=== PATIENT | male | born 1960 | race Two or more races ===

== ENCOUNTER 2017-04-24 07:40 | Inpatient (IN) | payer OTHER ==
[2017-04-24 09:49] VITALS: BMI 28.3
[2017-04-24] MEDS ORDERED: PEG 3350/NA SULF BICARB CL/KCL 4000 ML SOLN.RECON PO ONE (11:30)
[2017-04-24] MEDS ORDERED: ERTAPENEM SODIUM 1 GM/50 ML PRE-DOCKED IVPB ONE (11:30)
[2017-04-24] MEDS ORDERED: ERTAPENEM SODIUM 1 GM/50 ML PRE-DOCKED IVPB SCH (11:30)
[2017-04-24] MEDS: LOSARTAN POTASSIUM 50 MG TABLET (FP) PO SCH (21:23)
[2017-04-24] MEDS: METOPROLOL SUCCINATE 25 MG TAB.SR.24H (FP) PO SCH (21:23)
[2017-04-25 08:06] LABS: BASOPHIL 0.2 % (0-2.0); EOSINOPHIL 3.4 % (0-4.5); MCH 29.8 pg (25.7-33.7); MCHC 33.1 g/dl (32.0-35.9); MEAN CELL VOLUME 90.2 fl (80-96); MEAN PLT VOLUME 10.4 fl (7.5-11.1); NEUTROPHILS 59.6 % (42.8-82.8); PLATELET COUNT 196 K/MM3 (134-434); RDW 12.6 % (11.9-15.9); WHITE BLOOD COUNT 5.3 K/mm3 (4.0-10.8)
[2017-04-25 08:14] LABS: ALK PHOS 48 U/L (32-92); ANION GAP 5 (8-16); CO2 29 mmol/L (22-28); CREATININE 0.7 mg/dl (0.6-1.3); GLUCOSE,RANDOM 148 mg/dl (74-106); MAGNESIUM 1.8 mg/dL (1.8-2.4); PHOSPHOROUS 2.6 mg/dl (2.5-4.6); SGOT/AST 40 U/L (10-42); SGPT/ALT 74 U/L (10-40); TOT PROT 6.2 g/dl (6.4-8.3)
[2017-04-25 08:17] LABS: INR 1.12 (0.82-1.09); PROTHROMBIN TIME (PATIENT) 12.5 SEC (10.2-13.0)
[2017-04-25] MEDS ORDERED: oxyCODONE HCL 5 MG TABLET PO PRN ×2 (09:06)
[2017-04-25] MEDS ORDERED: ONDANSETRON 4 MG/2 ML VIAL IVPUSH PRN (09:06)
[2017-04-25] MEDS ORDERED: HYDROmorphone HCL CARPU-JECT 1 MG/1 ML DISP.SYRIN IVPUSH PRN (09:06)
[2017-04-25] MEDS ORDERED: DESFLURANE GAS 240 ML BOTTLE IH ONE (10:06)
[2017-04-25] MEDS: LOSARTAN POTASSIUM 50 MG TABLET (FP) PO SCH (10:14)
[2017-04-25] MEDS: METOPROLOL SUCCINATE 25 MG TAB.SR.24H (FP) PO SCH (10:14)
[2017-04-25] MEDS: LACTATED RINGERS SOLUTION 1,000 ML IV SCH ×3 (10:14→11:41)
[2017-04-25] MEDS: INSULIN SLIDING SCALE (NOVOLOG) 1 VIAL SQ SCH ×4 (10:27→21:42)
[2017-04-25] MEDS ORDERED: MIDAZOLAM HCL 2 MG/2 ML SINGLE DOSE VIAL ONE (10:29)
[2017-04-25] MEDS ORDERED: DEXAMETHASONE SOD PHOSPHATE/PF 10 MG/ML SDV ONE (10:29)
[2017-04-25] MEDS ORDERED: BUPIVACAINE HCL/PF 2.5 MG/ML - 30 ML VIAL IJ ONE (10:29)
[2017-04-25] MEDS ORDERED: ERTAPENEM SODIUM 1 GM/50 ML PRE-DOCKED IVPB ONE ×2 (11:00→22:00)
[2017-04-25] MEDS ORDERED: morphine CARPU-JECT 4 MG/1 ML DISP.SYRIN IVPB PRN (13:47)
[2017-04-25] MEDS ORDERED: morphine CARPU-JECT 10 MG/1 ML DISP.SYRIN IVPB PRN (13:48)
[2017-04-25] MEDS ORDERED: ONDANSETRON 4 MG/2 ML VIAL IVPB PRN (13:48)
--- NOTE | 2017-04-25 14:04 | OP ---
DATE OF OPERATION: 04/25/2017 PREOPERATIVE DIAGNOSIS: Cecal tumor. POSTOPERATIVE DIAGNOSIS: Cecal tumor, chronically incarcerated recurrent incisional hernia. PROCEDURE: Laparoscopic extended right hemicolectomy, omental patch, peritoneal lavage. SURGEON: Rex Kincaid MD GUSSET MAKER: Chester Mendosa DO ANESTHESIA: Angela Victoria MD (general). ESTIMATED BLOOD LOSS: Minimal. SPECIMENS: Right colon. MEDICAL COMORBIDITIES: Obesity, coronary artery disease, hypertension, diabetes. INDICATION FOR PROCEDURE: This is a 57-year-old gentleman who underwent a biopsy of a tumor noted at the time of colonoscopy at the appendiceal orifice. The pathology demonstrated tubular adenoma; however, this was not amenable to an endoscopic resection. This tumor is a wide-based tumor at the appendiceal orifice. We have discussed the pros and cons of an extended cecectomy versus a right colectomy, and the patient understands the risks and benefits of each operation and has opted to proceed with a right colectomy in case this is cancer, not coming back for a second operation. He also has a history of constipation, and he asked that we remove a little bit extra colon in hopes of improving his constipation, which most likely will not. He understands but still wants that performed. DESCRIPTION OF PROCEDURE: Patient identified and appropriately positioned on the operating room table. After placement of general anesthesia and prepped and draped in the usual sterile fashion using ChloraPrep, a supraumbilical incision was made, deepened through subcutaneous tissue. The fascia was divided sharply, the peritoneum incised under direct vision. A Veress needle followed by a structural needle was placed. The remaining 4 ports were placed under direct vision as well. Upon placement of the camera, there was omentum plastered to the previous incisional hernia repair. The omentum was taken down as needed. Once this was done, the patient was noted to have a recurrent incisional hernia. The colon identified in the right gutter, the cecum identified and lifted to the anterior abdominal wall. The ileocolic pedicle identified, and this was subsequently divided with the LigaSure device. Four welds placed prior to complete division. Next, the loose areolar tissue was then swept superiorly and inferiorly and the duodenum identified going north. The tissue anterior to the duodenum was then swept, and a window was made at the right upper quadrant at the level of the hepatic flexure. The colon now rolled medially and inferiorly, and the hepatic ligament was subsequently taken down with LigaSure device, the 2 windows subsequently connected, the transverse colon lifted to the anterior abdominal wall. The right branch of the middle colic artery identified and subsequently divided with the LigaSure device. The gastrocolic was taken down with LigaSure as well. Due to the extended right hemicolectomy this gentleman wanted, the gastrohepatic was taken beyond the midline. The patient had a fairly redundant mesentery in the transverse colon, and therefore the left branch of the middle colic was able to be spared. The tissue overlying this was subsequently removed as needed. Next the colon was then taken off the right gutter with the LigaSure device. The appendix was mobilized off the right gutter as well with the LigaSure. The midline incision had to be lengthened significantly to allow removal of this bulky, fatty colon with a large amount of fat around the mesentery. A wound protector was placed, the colon brought out through this limited midline incision, and the ileum was anastomosed to the transverse colon in a functional side-to- side fashion with a BLAYNE-80, 3.8-mm stapler, the enterotomy closed with a TA60, 3.8-mm stapler. This specimen was subsequently handed off. The TA staple line was grossly intact without evidence of separation, the BLAYNE staple line viewed to be the same. The bowel proximal and distal and at the level of the anastomosis was pink and viable without do ischemia. Portion of the omentum was mobilized and then anchored with interrupted 3-0 chromic sutures overlying the transverse staple line, the bowel returned to its anatomic position. There was a good 2 fingerbreadths' opening on the anastomosis. The surgeon and first grade teacher changed gloves at this point. The right gutter was then irrigated with saline, the operative field examined, noted to be hemostatic , the irrigant retrieved and noted to be clear. The ports were removed. Port sites were noted to be hemostatic. The fascia at the midline was reapproximated a running No. 1 PDS suture. The recurrent incisional hernia was not repaired during this setting. All skin closed with reji followed by Dermabond. At the end of the case sponge and needle counts correct. ATTESTATION: Brief operative note handwritten on the preprinted form. [facility] queried prior to giving any narcotics. Sylvester ATKINSON [id number] cc: MD Fabio Davis MD, BS, MBBS MTDD
--- NOTE | 2017-04-25 15:40 | HP ---
DATE OF ADMISSION: 04/24/2017 DATE OF DICTATION: 04/22/2017 REASON FOR ADMISSION: Cecal tumor. BRIEF HISTORY: This is a 57-year-old gentleman who underwent his routine colonoscopy by Dr. Mendoza. At the time of colonoscopy, he was noted to have a large polypoid mass at the appendiceal orifice. This mass was biopsied. However, this mass is not amendable to an endoscopic resection. Pathology is pending at this point. At this time, patient has no complaints of blood per rectum. He has no history of weight loss. He has no family history of colon cancer. PAST MEDICAL HISTORY: Significant for peptic ulcer disease, heart disease, coronary artery disease, hypertension, hypercholesterolemia, and diabetes. PAST SURGICAL HISTORY: Patient has had an open umbilical hernia repair. He does not think mesh was used by Dr. Taylor in [place]. ALLERGIES: None. MEDICATIONS: Amlodipine, losartan, metformin, and glipizide. SOCIAL HISTORY: Patient is retired. 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 He does not smoke. He drinks socially. PHYSICAL EXAMINATION: HEENT: Unremarkable. Lungs: Clear. Heart: Regular rhythm. Abdomen: Obese, soft, nontender, nondistended. He has a healed infraumbilical scar from an old umbilical hernia repair. He has an upper midline diastasis. IMPRESSION/PLAN: Cecal tumor. This is a 57-year-old gentleman with a vocazsd-hykg-8-cm tumor at the appendiceal orifice that is not amenable to an endoscopic resection. The patient and I as well as Dr. Mendoza had a conversation regarding the various approaches to perform either a cecectomy versus a formal right hemicolectomy. After these discussions with the 2 people, it is the patient's feeling to proceed with a formal right hemicolectomy in fear of that if there is carcinoma that is identified in this tumor, that the right hemicolectomy would eventually be needed. He also has a history of constipation, and he is hoping that the right hemicolectomy will help him with his history of constipation and redundancy in his colon. Patient understands very clearly that performing a right hemicolectomy in this setting has a higher risk of surgical complications. However, he is accepting of the risks in hopes of avoiding any future repeat surgeries. He understands at this point there is no diagnosis of carcinoma and that this is not amenable to an endoscopic resection. However, he still wishes to proceed in this fashion. He understands very clearly that even if the biopsy showed no carcinoma, there still could be carcinoma in the tissue remaining in the colon, thereby ultimately necessitating that right hemicolectomy. He has weighed all his options, and as mentioned, he is preferring to proceed with a laparoscopic right hemicolectomy. Patient will be undergoing a CAT scan of the abdomen and pelvis prior to any surgical intervention to rule out for obvious metastatic disease, and he will also be brought in 1 day prior to surgery for a formal mechanical bowel prep. The indications, alternatives, and complications discussed. Questions answered. We will plan on obtaining written consent the day of surgery. DANICA JADE M.D. [id number] cc: MD Fabio Davis MD, [address] [place] [address], phone number [phone]
[2017-04-25] MEDS: D5-1/2NS+20 MEQ KCL - 1,000 ML IV SCH (16:41)
[2017-04-25] MEDS ORDERED: INSULIN (NOVOLOG) ASPART 100 UNITS/ML 10ML VIAL ONE (16:44)
[2017-04-25] MEDS: ASPIRIN 81 MG CHEWABLE TABLETS PO SCH (21:40)
[2017-04-25] MEDS: HYDROCHLOROTHIAZIDE 12.5 MG CAPSULE (FP) PO SCH (21:40)
[2017-04-25] MEDS: amLODIPine BESYLATE 5 MG TABLET (FP) PO SCH (21:40)
[2017-04-25] MEDS: FAMOTIDINE 20 MG/50 ML IVPB 50 ML IVPB SCH (22:09)
[2017-04-26] MEDS: INSULIN SLIDING SCALE (NOVOLOG) 1 VIAL SQ SCH ×4 (06:33→21:21)
[2017-04-26] MEDS: METOPROLOL TARTRATE 25 MG TABLET (FP) PO SCH ×3 (09:59→21:23)
[2017-04-26] MEDS: FAMOTIDINE 20 MG/50 ML IVPB 50 ML IVPB SCH ×2 (09:59→21:22)
[2017-04-26] MEDS: LACTATED RINGERS SOLUTION 1,000 ML IV SCH ×2 (09:59→12:49)
[2017-04-26] MEDS: amLODIPine BESYLATE 5 MG TABLET (FP) PO SCH (09:59)
[2017-04-26] MEDS: HYDROCHLOROTHIAZIDE 12.5 MG CAPSULE (FP) PO SCH (09:59)
[2017-04-26] MEDS: LOSARTAN POTASSIUM 50 MG TABLET (FP) PO SCH (09:59)
[2017-04-26] MEDS: ASPIRIN 81 MG CHEWABLE TABLETS PO SCH (09:59)
[2017-04-26] MEDS: ENOXAPARIN NA (PORCINE) 40 MG/0.4 ML DISP.SYRIN SQ SCH (09:59)
[2017-04-26] MEDS: D5-1/2NS+20 MEQ KCL - 1,000 ML IV SCH (14:17)
[2017-04-26] MEDS ORDERED: INSULIN (NOVOLOG) ASPART 100 UNITS/ML 10ML VIAL ONE (17:24)
[2017-04-27] MEDS ORDERED: INSULIN (NOVOLOG) ASPART 100 UNITS/ML 10ML VIAL ONE (07:05)
[2017-04-27] MEDS: INSULIN SLIDING SCALE (NOVOLOG) 1 VIAL SQ SCH ×4 (07:06→21:05)
[2017-04-27 09:13] LABS: MCHC 36.9 g/dl (32.0-35.9); MEAN CELL VOLUME 83.9 fl (80-96); MEAN PLT VOLUME 10.3 fl (7.5-11.1); PLATELET COUNT 179 K/MM3 (134-434); RDW 12.4 % (11.9-15.9); WHITE BLOOD COUNT 9.4 K/mm3 (4.0-10.8)
[2017-04-27 09:20] LABS: ANION GAP 3 (8-16); CALCIUM 9.4 mg/dl (8.4-10.2); CO2 27 mmol/L (22-28); CREATININE 0.7 mg/dl (0.6-1.3); GLUCOSE,RANDOM 168 mg/dl (74-106)
[2017-04-27] MEDS: LACTATED RINGERS SOLUTION 1,000 ML IV SCH ×2 (09:42→11:36)
[2017-04-27] MEDS: ASPIRIN 81 MG CHEWABLE TABLETS PO SCH (09:42)
[2017-04-27] MEDS: FAMOTIDINE 20 MG/50 ML IVPB 50 ML IVPB SCH ×2 (09:43→21:05)
[2017-04-27] MEDS: ENOXAPARIN NA (PORCINE) 40 MG/0.4 ML DISP.SYRIN SQ SCH (09:43)
[2017-04-27] MEDS: METOPROLOL TARTRATE 25 MG TABLET (FP) PO SCH ×2 (09:43→21:05)
[2017-04-27] MEDS: LOSARTAN POTASSIUM 50 MG TABLET (FP) PO SCH (09:43)
[2017-04-27] MEDS: HYDROCHLOROTHIAZIDE 12.5 MG CAPSULE (FP) PO SCH (09:43)
[2017-04-27] MEDS: amLODIPine BESYLATE 5 MG TABLET (FP) PO SCH (09:43)
[2017-04-27 10:30] LABS: PLATELET ESTIMATE ADEQUATE (NORMAL)
[2017-04-27] MEDS: D5-1/2NS+20 MEQ KCL - 1,000 ML IV SCH (14:30)
[2017-04-28] MEDS: INSULIN SLIDING SCALE (NOVOLOG) 1 VIAL SQ SCH ×4 (06:56→21:07)
[2017-04-28] MEDS ORDERED: PT OWN MED DRAWER 7, Y5N ONE (09:22)
[2017-04-28] MEDS: ASPIRIN 81 MG CHEWABLE TABLETS PO SCH (09:31)
[2017-04-28] MEDS: LOSARTAN POTASSIUM 50 MG TABLET (FP) PO SCH (09:31)
[2017-04-28] MEDS: LACTATED RINGERS SOLUTION 1,000 ML IV SCH ×2 (09:31→18:37)
[2017-04-28] MEDS: ENOXAPARIN NA (PORCINE) 40 MG/0.4 ML DISP.SYRIN SQ SCH (09:32)
[2017-04-28] MEDS: amLODIPine BESYLATE 5 MG TABLET (FP) PO SCH (09:32)
[2017-04-28] MEDS: HYDROCHLOROTHIAZIDE 12.5 MG CAPSULE (FP) PO SCH (09:32)
[2017-04-28] MEDS: METOPROLOL TARTRATE 25 MG TABLET (FP) PO SCH ×2 (09:32→21:30)
[2017-04-28] MEDS: FAMOTIDINE 20 MG/50 ML IVPB 50 ML IVPB SCH ×2 (09:32→21:30)
[2017-04-28] MEDS ORDERED: oxyCODONE HCL 5 MG TABLET PO PRN ×2 (20:04)
[2017-04-29] MEDS: INSULIN SLIDING SCALE (NOVOLOG) 1 VIAL SQ SCH (06:23)
[2017-04-29 06:35] VITALS: BP 156/85; PULSE 63; TEMP 98.5
[2017-04-29] MEDS: FAMOTIDINE 20 MG/50 ML IVPB 50 ML IVPB SCH (09:27)
[2017-04-29] MEDS: METOPROLOL TARTRATE 25 MG TABLET (FP) PO SCH (09:28)
[2017-04-29] MEDS: HYDROCHLOROTHIAZIDE 12.5 MG CAPSULE (FP) PO SCH (09:28)
[2017-04-29] MEDS: ASPIRIN 81 MG CHEWABLE TABLETS PO SCH (09:28)
[2017-04-29] MEDS: amLODIPine BESYLATE 5 MG TABLET (FP) PO SCH (09:28)
[2017-04-29] MEDS: LOSARTAN POTASSIUM 50 MG TABLET (FP) PO SCH (09:29)
[2017-04-29] MEDS: ENOXAPARIN NA (PORCINE) 40 MG/0.4 ML DISP.SYRIN SQ SCH (09:29)
--- NOTE | 2017-04-29 12:06 | DS ---
DATE OF ADMISSION: 04/24/2017 DATE OF DISCHARGE: 04/29/2017 ADMITTING DIAGNOSIS: Colon neoplasm. DISCHARGE DIAGNOSIS: Colon neoplasm. BRIEF HISTORY: This is a 57-year-old male with a neoplasm in his right colon. He was admitted for surgical management. He underwent IV hydration and bowel preparation. On April 25 he underwent a laparoscopic right colectomy without complication. Postoperatively he did well. He is being discharged home today, April 29, tolerating a liquid diet, passing gas, and having a bowel movement. He will follow with Dr. Kincaid in approximately 1 week's time to be evaluated for staple removal and to review his pathology, which is not back at the time of discharge. He does not require narcotic pain medication. He will resume his usual home medications of Glucophage, metoprolol, and Norvasc, as well as losartan, hydrochlorothiazide, and aspirin. He is okay to shower, okay to drive, okay to walk, okay to climb stairs. He will not lift anything more than 20 pounds. DO RUTH HOOKER/[id number]
--- NOTE | 2017-05-01 16:10 | PATH ---
Surgical Pathology Report Patient Name: LIZY CASIANO Med. Rec. #: [id number] /Age/Gender: 1960 (Age: 57) / M Account: [id number] Location: [facility] MED-SURG Taken: 04/25/2017 Received: 04/25/2017 Reported: 05/01/2017 Physicians: Rex Kincaid Specimen(s) Received RIGHT COLON Clinical History Neoplasm of colon Final Diagnosis RIGHT COLON, HEMICOLECTOMY: FOCAL RESIDUAL ADENOMATOUS CHANGES, PRESENT IN REGION OF APPENDICEAL ORIFICE. FOCUS OF SUBMUCOSAL HEMORRHAGE IS NOTED IN REGION OF APPENDICEAL ORIFICE, POSSIBLY RELATED TO PRIOR BIOPSY SITE. ADDITIONAL SUBMUCOSAL HEMATOMA PRESENT IN DISTAL ASPECT OF ASCENDING COLON. REMAINING PORTION OF COLON, ILEUM AND APPENDIX SHOW NO SIGNIFICANT PATHOLOGIC FINDINGS. NINE BENIGN PERICOLONIC LYMPH NODES (0/9). Note: Case reviewed in intradepartmental consultation with consensus on diagnosis. Electronically Signed Sofiya Frias M.D. Gross Description Received in formalin labeled "right colon," is an 8 cm in length portion of terminal ileum with an attached 21 cm in length portion of cecum and right colon. The specimen displays two open mucosal margins. The serosa is lopez fonseca with abundant attached pericolonic adipose tissue. There is a 5.5 cm in length vermiform appendix attached at the cecum. The mucosa is lopez-pink with normal folds. No definite mucosal masses are identified. The wall is focally thickened in the area of the appendiceal orifice. There is a separate focus of submucosal hemorrhage at the distal aspect of the specimen. Sectioning of the pericolonic adipose tissue reveals multiple lopez, irregular lymph nodes. Inspector Eyeglass sections are submitted in 23 cassettes as follows: 1-proximal mucosal margin of resection; 2-distal mucosal margin of resection; 3-9-cecum from area of appendiceal orifice; 64-58-yfgkzluvvuj orifice; 51-72-deysqttezvmjof proximal appendix and bisected distal tip of appendix; 16-distal submucosal hemorrhage; 17-uninvolved terminal ileum; 18-uninvolved right colon; 19-21-one whole bisected lymph node each; 70-32-xezphilq whole lymph nodes. 04/29/201704/29/2017
== END 2017-04-29 12:05 | disposition home or self-care (01) | DRG 330 ==
LOC: FM/S 07:40 → EDSTATUS 11:00
PROVIDERS: ADMIT Surgery; ATTEND Surgery
PROC: 0DTF4ZZ Resection of Right Large Intestine, Percutaneous Endoscopic Approach (ICD-10-PCS; principal; 2017-04-24)
PROC: 0WUF47Z Supplement Abdominal Wall with Autologous Tissue Substitute, Percutaneous Endoscopic Approach (ICD-10-PCS; 2017-04-24)
PROC: 3E1M38Z Irrigation of Peritoneal Cavity using Irrigating Substance, Percutaneous Approach (ICD-10-PCS; 2017-04-24)
DX: D12.0 Benign neoplasm of cecum (principal); K43.0 Incisional hernia with obstruction, without gangrene; I25.10 Atherosclerotic heart disease of native coronary artery without angina pectoris; I10 Essential (primary) hypertension; E11.9 Type 2 diabetes mellitus without complications; E66.8 Other obesity; Z68.28 Body mass index [BMI] 28.0-28.9, adult
CPT/HCPCS: 36415; 74178-TC; 80048; 80053; 83735; 84100; 85025; 85027; 85610; 88307-TC; 94760